=== PATIENT | female | born 1960 | race Caucasian/White ===

== ENCOUNTER 2018-09-14 13:45 | Emergency (ER) | payer OTHER | END 2018-09-14 17:40 | disposition home or self-care (01) | LOC: FTE 13:45 | DX: J20.9 Acute bronchitis, unspecified (principal); J45.909 Unspecified asthma, uncomplicated | CPT/HCPCS: 99283; Z7502 ==

== ENCOUNTER 2018-09-16 22:17 | Emergency (ER) | payer OTHER ==
[2018-09-17] MEDS: DEXAMETHASONE 10 MG/ML 1 ML INJ IM (04:46)
== END 2018-09-17 04:54 | disposition home or self-care (01) ==
LOC: E/R 22:17
DX: J06.9 Acute upper respiratory infection, unspecified (principal); J45.909 Unspecified asthma, uncomplicated
CPT/HCPCS: 71045; 96372; 99284-25